=== PATIENT | male | born 1990 | race Caucasian/White ===

== ENCOUNTER 2017-09-04 14:48 | Emergency (ER) | payer SELFPAY ==
[~2017-09-04] VITALS: Ht 172.7 cm; Wt 77.0 kg
[~2017-09-04 14:48] MED LIST: CIPR500T4 PO; IBUP800T23 PO
[2017-09-04 14:49] VITALS: BP 123/68; PULSE 97; RESP 15; TEMP 98.6; O2SAT 98
[2017-09-04 19:24] VITALS: BP 130/82; PULSE 67; RESP 16; O2SAT 100
--- NOTE | 2017-09-04 19:28 | PD ---
HPI Chief Complaint: Injury Time Seen by Provider: 19:17 Travel History International Travel<30 days: No Contact w/Intl Traveler<30days: No Traveled to known affect area: No History of Present Illness HPI 27yo M with no significant PMH presents to the ED with c/o bilateral toe pain. Said he dropped a safe on both big toes yesterday afternoon. Pain was not bad but got worst today. Took acetaminophen at about 1pm with some relieve. Denies any fever, chest pain, sob, n/v, abdominal pain, focal weakness or numbness. PFSH Past Medical History ADHD: Yes Dementia: Yes Diminished Hearing: No Immunizations Current: Yes Tetanus Vaccination: < 5 Years Influenza Vaccination: No Past Surgical History Abdominal Surgery: Yes (PERF. ANUS REPAIR ) Social History Alcohol Use: Yes (OCC) Tobacco Use: Yes (11/16 PPD) Substance Use: Yes (xanax, DILAUDID, USING METHADONE AND MARIJUANA) Allergies-Medications (Allergen,Severity, Reaction): Coded Allergies: No Known Allergies (Verified , 09/04/17) Reported Meds & Prescriptions Reported Meds & Active Scripts Active No Active Prescriptions or Reported Medications Review of Systems Except as stated in HPI: all other systems reviewed are Neg Physical Exam Narrative GENERAL: 27yo M in mild distress. SKIN: Focused skin assessment warm/dry. HEAD: Atraumatic. Normocephalic. CARDIOVASCULAR: Regular rate and rhythm. No murmur appreciated. RESPIRATORY: No accessory muscle use. Clear to auscultation. Breath sounds equal bilaterally. GASTROINTESTINAL: Abdomen soft, non-tender, nondistended. MUSCULOSKELETAL: Right foot: +Swelling and fluctuance under right big toe nail, ttp. Left foot: +Swelling and fluctuance under left big toe nail and on top of left big toe nail. DP 2+ bilateral foot. No open wounds. Sensation and muscle strength intact. NEUROLOGICAL: Awake and alert. No obvious cranial nerve deficits. Motor grossly within normal limits. Normal speech. PSYCHIATRIC: Appropriate mood and affect; insight and judgment normal. Data Data Last Documented VS Vital Signs Date Time Temp Pulse Resp B/P (MAP) Pulse Ox O2 Delivery O2 Flow Rate FiO2 09/04/17 19:24 67 16 130/82 (98) 100 Room Air 09/04/17 14:49 98.6 Orders Orders Lidocaine 1% Inj (50 Ml) (Xylocaine 1% I (09/04/17 19:30) Foot, Limited (2vws) (09/04/17 ) Foot, Limited (2vws) (09/04/17 ) Ibuprofen (Motrin) (09/04/17 19:30) MDM Medical Decision Making Medical Screen Exam Complete: Yes Emergency Medical Condition: Yes Differential Diagnosis Paronychia vs. fracture Narrative Course 27yo M with bilateral big toe paronychia from dropping a safe on it. Bilateral foot xray unremarkable. No fractures. My PA did I&D of both paronychias. Pt given ibuprofen for pain which helped. Pt ambulating in the ED without any assistance. Pt said his tetanus is updated. Pt instructed to follow up with podiatry as outpatient. Return to the ED if symptoms worsen. Diagnosis Primary Impression: Paronychia of great toe of left foot Additional Impression: Paronychia of great toe of right foot Referrals: Barry Rondon DPM call for appointment Please follow up with podiatry as needed. Patient Instructions: General Instructions Departure Forms: Tests/Procedures Additional Instructions: Please follow up with podiatry as needed and return to the ED if symptoms worsen. Med/Other Pt SpecificInfo: Prescription(s) given Scripts Cephalexin (Keflex) 500 Mg Cap 500 MG PO Q12H for Infection for 7 Days, #14 CAP 0 Refills Prov: Anila Samuel DO 09/04/17 Ibuprofen (Ibuprofen) 600 Mg Tab 600 MG PO Q8H Y for PAIN, #20 TAB 0 Refills Prov: Anila Samuel DO 09/04/17 Disposition: 01 DISCHARGE HOME Condition: Stable Anila Samuel DO Sep 04, 2017 19:28
[2017-09-04] MEDS ORDERED: IBUPROFEN 600 MG TAB PO ONE (19:30)
[2017-09-04] MEDS ORDERED: LIDOCAINE HCL 1% 50 ML VIAL INFIL ONE (19:30)
--- NOTE | 2017-09-04 20:02 | RADRPT ---
EXAM DATE/TIME: 09/04/2017 20:37 [facility] COMPARISON: No previous studies available for comparison. INDICATIONS : Left foot pain after dropping safe on foot. MEDICAL HISTORY : None. SURGICAL HISTORY : None. ENCOUNTER: Initial ACUITY: 2 days PAIN SCORE: 8/10 LOCATION: Left foot, dorsal surface. FINDINGS: Two view examination of the left foot demonstrates no soft tissue swelling, dislocation, or fracture. The calcaneus is intact. Bony mineralization is normal. CONCLUSION: Unremarkable limited examination of the left foot. John Fuentes MD on September 04, 2017 at 20:00 Board Certified Radiologist. This report was verified electronically.
--- NOTE | 2017-09-04 20:15 | RADRPT ---
EXAM DATE/TIME: 09/04/2017 20:38 [facility] COMPARISON: No previous studies available for comparison. INDICATIONS : Right foot pain after dropping safe on foot. MEDICAL HISTORY : None. SURGICAL HISTORY : None. ENCOUNTER: Initial ACUITY: 2 days PAIN SCORE: 8/10 LOCATION: Right foot, dorsal surface. FINDINGS: Two view examination of the right foot demonstrates no soft tissue swelling, dislocation, or fracture . The calcaneus is intact. Bony mineralization is normal. CONCLUSION: Unremarkable limited examination of the right foot. John Fuentes MD on September 04, 2017 at 20:13 Board Certified Radiologist. This report was verified electronically.
--- NOTE | 2017-09-04 20:39 | PD ---
Physical Exam Time Seen by Provider: 20:10 Narrative I was asked by my attending physician Dr. Samuel to perform I&D of bilateral paronychia to great toes. please see her full note for details. INCISION AND DRAINAGE OF ABSCESS: The area was prepped and was sterilely draped. Topical ethyl chloride was used to anesthetize the area properly. A number [11] scalpel was used to make a 0.5-cm incision across the area of the abscess. The abscess was drained and irrigated with normal saline. Sterile dressings applied. Patient tolerated procedure well. Data Data Last Documented VS Vital Signs Date Time Temp Pulse Resp B/P (MAP) Pulse Ox O2 Delivery O2 Flow Rate FiO2 09/04/17 19:24 67 16 130/82 (98) 100 Room Air 09/04/17 14:49 98.6 Orders Orders Lidocaine 1% Inj (50 Ml) (Xylocaine 1% I (09/04/17 19:30) Foot, Limited (2vws) (09/04/17 ) Foot, Limited (2vws) (09/04/17 ) Ibuprofen (Motrin) (09/04/17 19:30) MDM Supervised Visit with CORINNA: Yes Scripts No Active Prescriptions or Reported Meds Felicita Hutson Sep 04, 2017 20:39
[2017-09-04] MEDS ORDERED: IBUP-232 PO (21:53)
[2017-09-04] MEDS ORDERED: CEPH-460 PO (21:53)
== END 2017-09-04 22:04 | disposition home or self-care (01) ==
LOC: NEPD 14:48
DX: L03.032 Cellulitis of left toe (principal); L03.031 Cellulitis of right toe
CPT/HCPCS: 10060; 73620

== ENCOUNTER 2017-10-04 06:05 | Emergency (ER) | payer SELFPAY ==
[~2017-10-04] VITALS: Ht 172.7 cm; Wt 88.0 kg
[~2017-10-04 06:05] MED LIST changes: +CEPH-460 PO; -CIPR500T4 PO; +IBUP-232 PO; -IBUP800T23 PO
[2017-10-04 06:07] VITALS: BP 125/81; PULSE 70; RESP 15; TEMP 97.6; O2SAT 100
--- NOTE | 2017-10-04 06:24 | PD ---
HPI Chief Complaint: Suicide Ideation/Attempt Time Seen by Provider: 06:15 Travel History International Travel<30 days: No Contact w/Intl Traveler<30days: No Traveled to known affect area: No History of Present Illness HPI 27-year-old white male presents to emergency department requesting voluntary psych evaluation. He states that his feeling depressed and suicidal although he has no plan. He states that his tire living on the streets. The patient has history of substance abuse. He last snorted Klonopin yesterday. He said a history of IV drug abuse the past. He states that he has not used IV drugs in some time. He does smoke marijuana. He was just released from correction one month ago. He has been on the streets since then. Patient denies any toxic ingestions. No medical complaints. PFSH Past Medical History Narrative Medical ADHD, depression, substance abuse ADHD: Yes Depression: Yes Diminished Hearing: No Immunizations Current: Yes Tetanus Vaccination: < 5 Years Past Surgical History Abdominal Surgery: Yes (PERF. ANUS REPAIR ) Social History Alcohol Use: Yes (OCC) Tobacco Use: Yes (11/16 PPD) Substance Use: No (pt states 1 yr clean of opites) Allergies-Medications (Allergen,Severity, Reaction): Coded Allergies: No Known Allergies (Verified , 09/04/17) Reported Meds & Prescriptions Reported Meds & Active Scripts Active No Active Prescriptions or Reported Medications Review of Systems General / Constitutional: No: Fever Eyes: No: Visual changes HENT: No: Headaches Cardiovascular: No: Chest Pain or Discomfort Respiratory: No: Shortness of Breath Gastrointestinal: No: Abdominal Pain Genitourinary: No: Dysuria Musculoskeletal: No: Pain Skin: No Rash Neurologic: No: Weakness Psychiatric: No: Depression Endocrine: No: Polydipsia Hematologic/Lymphatic: No: Easy Bruising Physical Exam Narrative GENERAL: Well-nourished, well-developed patient. SKIN: Warm and dry. HEAD: Normocephalic and atraumatic. EYES: No scleral icterus. No injection or drainage. ENT: No nasal drainage noted. Mucous membranes pink. Airway patent. NECK: Supple, trachea midline. Moves head freely without obvious discomfort. CARDIOVASCULAR: Regular rate and rhythm without murmurs, gallops, or rubs. RESPIRATORY: Breath sounds equal bilaterally. No accessory muscle use. GASTROINTESTINAL: Abdomen soft, non-tender, nondistended. EXTREMITIES: No cyanosis or edema. BACK: Nontender without obvious deformity. No CVA tenderness. NEURO: Patient is alert and oriented. no sensorimotor deficits. Nonfocal. Normal speech. PSYCH: No delusions. No auditory or visual hallucinations. Data Data Last Documented VS Vital Signs Date Time Temp Pulse Resp B/P (MAP) Pulse Ox O2 Delivery O2 Flow Rate FiO2 10/04/17 06:07 97.6 70 15 125/81 (96) 100 Room Air Orders Orders Complete Blood Count With Diff (10/04/17 06:21) Comprehensive Metabolic Panel (10/04/17 06:21) Psych Screen (10/04/17 06:21) Drug Screen, Random Urine (10/04/17 06:21) Alcohol (Ethanol) (10/04/17 06:21) Labs Laboratory Tests Test 10/04/17 06:30 White Blood Count 11.1 TH/MM3 Red Blood Count 4.68 MIL/MM3 Hemoglobin 13.7 GM/DL Hematocrit 39.7 % Mean Corpuscular Volume 84.8 FL Mean Corpuscular Hemoglobin 29.2 PG Mean Corpuscular Hemoglobin Concent 34.4 % Red Cell Distribution Width 12.7 % Platelet Count 282 TH/MM3 Mean Platelet Volume 7.1 FL Neutrophils (%) (Auto) 68.9 % Lymphocytes (%) (Auto) 19.0 % Monocytes (%) (Auto) 10.2 % Eosinophils (%) (Auto) 1.5 % Basophils (%) (Auto) 0.4 % Neutrophils # (Auto) 7.7 TH/MM3 Lymphocytes # (Auto) 2.1 TH/MM3 Monocytes # (Auto) 1.1 TH/MM3 Eosinophils # (Auto) 0.2 TH/MM3 Basophils # (Auto) 0.0 TH/MM3 CBC Comment DIFF FINAL Differential Comment MDM Medical Decision Making Medical Screen Exam Complete: Yes Emergency Medical Condition: Yes Medical Record Reviewed: Yes Differential Diagnosis MDM: High Differential diagnoses: Schizophrenia, schizoaffective disorder, bipolar, anxiety, depression, adjustment reaction, mood disorder NOS, ODD, depressive disorder NOS, dementia, dementia with agitation, psychosis NOS, substance induced mood disorder, DMDD, Asperger syndrome, infection,electrolyte abnormality, malingering. Narrative Course Mental health screening discussed with the patient. Psychiatric screen ordered. The patient's been medically clear. Patient's care is transferred to [facility]. This is medical clearance for psychiatric admission Diagnosis Primary Impression: Medical clearance for psychiatric admission Scripts No Active Prescriptions or Reported Meds Condition: Stable Seng López Oct 04, 2017 06:24
[2017-10-04 06:50] LABS: AUTOMATED NEUTROPHIL # 7.7 TH/MM3 (1.8-7.7); BASOPHIL % 0.4 % (0.0-2.0); EOSINOPHIL # 0.2 TH/MM3 (0-0.4); EOSINOPHIL % 1.5 % (0.0-4.0); HEMATOCRIT 39.7 % (39.0-51.0); HEMO FLAGS DIFF FINAL; LYMPHOCYTE # 2.1 TH/MM3 (1.0-4.8); MEAN CELL VOLUME 84.8 FL (80.0-100.0); MEAN CORPUSCULAR HEMOGLOBIN 29.2 PG (27.0-34.0); MEAN CORPUSCULAR HGB CONC 34.4 % (32.0-36.0); MONO % 10.2 % (0.0-8.0); NEUT % 68.9 % (16.0-70.0); PLATELET COUNT 282 TH/MM3 (150-450); RED BLOOD COUNT 4.68 MIL/MM3 (4.50-5.90); RED CELL DISTRIBUTION WIDTH 12.7 % (11.6-17.2); WHITE BLOOD COUNT 11.1 TH/MM3 (4.0-11.0)
[2017-10-04 07:05] LABS: ANION GAP 7 MEQ/L (5-15); AST (GOT) 13 U/L (15-37); BICARBONATE 28.8 MEQ/L (21.0-32.0); BLOOD UREA NITROGEN 10 MG/DL (7-18); CHLORIDE 104 MEQ/L (98-107); GLOMERULAR FILTRATION RATE 110 ML/MIN (>89); POTASSIUM 3.7 MEQ/L (3.5-5.1); SODIUM (NA) 140 MEQ/L (136-145)
[2017-10-04 07:08] LABS: ALKALINE PHOSPHATASE 70 U/L (45-117); ALT (GPT) 21 U/L (12-78); TOTAL BILIRUBIN ADULT 0.9 MG/DL (0.2-1.0)
[2017-10-04 07:23] LABS: ALCOHOL LESS THAN 3 MG/DL (0-5)
--- NOTE | 2017-10-04 07:34 | PD ---
Physical Exam Date Seen by Provider: Oct 04, 2017 Narrative 27 y male present to the ED with SI. Apparently he was released from the skilled nursing approximately 1 week ago. Denies a plan. He is medically cleared for psych eval. See Romeo sauer as well for more information. Upon transfer to [facility] and just before the psychiatrist was to see the patient, patient denied suicidal or homicidal ideations. Patient is voluntary, denies SI /HI, will be allowed to go home. When asked what changed, pt stated that ' tomorrow is Thanksgiving'. I asked him if he had a place to go and he said yes and he needed to make a phone call. He also inquired about a bus pass. Pt stated he was ready to go home. Pt appeared to be of clear mind, coherent, reasonable. Pt is discharged and advised to follow up with psychiatry outpatient. Data Data Last Documented VS Vital Signs Date Time Temp Pulse Resp B/P (MAP) Pulse Ox O2 Delivery O2 Flow Rate FiO2 10/04/17 10:40 10/04/17 07:15 Room Air 10/04/17 06:07 97.6 70 15 100 Orders Orders Complete Blood Count With Diff (10/04/17 06:21) Comprehensive Metabolic Panel (10/04/17 06:21) Psych Screen (10/04/17 06:21) Drug Screen, Random Urine (10/04/17 06:21) Alcohol (Ethanol) (10/04/17 06:21) Diet Regular Basic (10/04/17 Breakfast) Ed Discharge Order (10/04/17 09:56) Labs Laboratory Tests Test 10/04/17 06:30 10/04/17 09:40 White Blood Count 11.1 TH/MM3 Red Blood Count 4.68 MIL/MM3 Hemoglobin 13.7 GM/DL Hematocrit 39.7 % Mean Corpuscular Volume 84.8 FL Mean Corpuscular Hemoglobin 29.2 PG Mean Corpuscular Hemoglobin Concent 34.4 % Red Cell Distribution Width 12.7 % Platelet Count 282 TH/MM3 Mean Platelet Volume 7.1 FL Neutrophils (%) (Auto) 68.9 % Lymphocytes (%) (Auto) 19.0 % Monocytes (%) (Auto) 10.2 % Eosinophils (%) (Auto) 1.5 % Basophils (%) (Auto) 0.4 % Neutrophils # (Auto) 7.7 TH/MM3 Lymphocytes # (Auto) 2.1 TH/MM3 Monocytes # (Auto) 1.1 TH/MM3 Eosinophils # (Auto) 0.2 TH/MM3 Basophils # (Auto) 0.0 TH/MM3 CBC Comment DIFF FINAL Differential Comment Blood Urea Nitrogen 10 MG/DL Creatinine 0.84 MG/DL Random Glucose 92 MG/DL Total Protein 7.5 GM/DL Albumin 3.7 GM/DL Calcium Level 8.8 MG/DL Alkaline Phosphatase 70 U/L Aspartate Amino Transf (AST/SGOT) 13 U/L Alanine Aminotransferase (ALT/SGPT) 21 U/L Total Bilirubin 0.9 MG/DL Sodium Level 140 MEQ/L Potassium Level 3.7 MEQ/L Chloride Level 104 MEQ/L Carbon Dioxide Level 28.8 MEQ/L Anion Gap 7 MEQ/L Estimat Glomerular Filtration Rate 110 ML/MIN Ethyl Alcohol Level LESS THAN 3 MG/DL Urine Opiates Screen NEG Urine Barbiturates Screen NEG Urine Amphetamines Screen NEG Urine Benzodiazepines Screen NEG Urine Cocaine Screen NEG Urine Cannabinoids Screen POS MDM Supervised Visit with CORINNA: Yes Diagnosis Primary Impression: Medical clearance for psychiatric admission Additional Impression: Depression Qualified Codes: F33.1 - Major depressive disorder, recurrent, moderate Referrals: [facility] Additional Instruction: Follow-up with psychiatry as soon as possible. Avoid Intoxication as this can precipitate to her depression and suicidal ideations. Scripts No Active Prescriptions or Reported Meds Disposition: 01 DISCHARGE HOME Condition: Stable Angie Mireles Oct 04, 2017 07:34
== END 2017-10-04 10:55 | disposition home or self-care (01) ==
LOC: NEPD 06:05 → NEPJ 10:55
DX: F33.1 Major depressive disorder, recurrent, moderate (principal); Z72.0 Tobacco use; F12.90 Cannabis use, unspecified, uncomplicated
CPT/HCPCS: 80053; 80307; 85025; 99285